=== PATIENT | male | born 1990 | race Two or more races ===

== ENCOUNTER 2022-07-19 14:19 | Emergency (ER) | payer OTHER ==
[~2022-07-19] VITALS: Ht 180.3 cm; Wt 117.9 kg
== END 2022-07-19 22:38 | disposition home or self-care (01) ==
LOC: ER 14:19
DX: R10.32 Left lower quadrant pain (principal); I88.0 Nonspecific mesenteric lymphadenitis; K76.0 Fatty (change of) liver, not elsewhere classified